=== PATIENT | male | born 1960 | race Caucasian/White ===

== ENCOUNTER 2020-10-25 14:26 | Emergency (ER) | payer OTHER, MEDICAID ==
[~2020-10-25] VITALS: Ht 162.6 cm; Wt 61.2 kg
[2020-10-25 14:26] VITALS: BP_SYST 136
[~2020-10-25 14:26] MED LIST: NORCO5 PO
--- NOTE | 2020-10-25 14:26 | NUR ---
BROUGHT BACK TO BED #2 AND TRIAGED. REPORT GIVEN TO SAM
--- NOTE | 2020-10-25 14:50 | NUR ---
pt. here has chronic back pain and ran out of regular Tylenol with codeine prescription. rates pain 01/09 which is normal when he does not take medication, Dr. Lara at bedside
--- NOTE | 2020-10-25 14:50 | NUR ---
MIKE Powers at bedside examining patient.
[2020-10-25] MEDS ORDERED: HYDROcodone/ACETAMIN 5-325 MG TAB (NORCO/ VICODIN) PO ONE (15:00)
--- NOTE | 2020-10-25 15:02 | NUR ---
norco given for pain 01/09
[2020-10-25 15:13] VITALS: BP_SYST 126
--- NOTE | 2020-10-25 15:14 | NUR ---
Patient given written and verbal discharge instructions and verbalizes understanding. Dr. Lara discussed with patient the results and treatment provided. Patient in stable condition. ID arm band removed. Patient educated on pain management and to follow up with PMD. Pain Scale 3. Opportunity for questions provided and answered. Medication side effect fact sheet provided.
== END 2020-10-25 15:14 | disposition home or self-care (01) ==
LOC: SED 14:26
DX: M54.5 Low back pain (principal)
CPT/HCPCS: 99283

== ENCOUNTER 2021-12-21 08:21 | Day surgery (SDC) | payer OTHER, MEDICAID ==
[2021-12-17 11:55] LABS: BILIRUBIN,URINE NEGATIVE (NEGATIVE); BLOOD, URINE NEGATIVE (NEGATIVE); CLARITY/URINE CLEAR (CLEAR); COLOR,URINE YELLOW (YELLOW); GLUCOSE,URINE NEGATIVE (NEGATIVE); KETONES,URINE NEGATIVE (NEGATIVE); LEUKOCYTE ESTERASE ,URINE NEGATIVE (NEGATIVE); NITRITE, URINE NEGATIVE (NEGATIVE); PROTEIN URINE NEGATIVE (NEGATIVE); UROBILINOGEN,URINE 0.2 (0.2-1.0)
[2021-12-17 11:58] LABS: BASOPHILS # (AUTO) 0.1 K/uL (0.0-0.2); BASOPHILS % (AUTO) 0.7 % (0.0-2.0); EOSINOPHILS # (AUTO) 0.5 K/uL (0.0-0.4); EOSINOPHILS % (AUTO) 4.7 % (0.0-4.0); HEMATOCRIT 32.8 % (36-54); LYMPHOCYTES # (AUTO) 1.8 K/uL (1.0-5.5); LYMPHOCYTES % (AUTO) 16.3 % (20.5-51.5); MEAN CORPUSCULAR HEMOGLOBIN 30 pg (27-31); MEAN CORPUSCULAR HGB CONC 34 % (32-36); MEAN CORPUSCULAR VOLUME 90 fL (79.0-98.0); MONOCYTES # (AUTO) 1.5 K/uL (0.0-1.0); MONOCYTES % (AUTO) 13.1 % (1.7-9.3); NEUTROPHILS # (AUTO) 7.3 K/uL (1.8-7.7); NEUTROPHILS % (AUTO) 65.2 % (40.0-70.0); PLATELET COUNT (AUTO) 249 K/uL (130-430); RED BLOOD CELL COUNT(AUTO) 3.66 MIL/uL (4.2-6.2); WHITE BLOOD COUNT (AUTO) 11.3 K/uL (4.8-10.8)
[2021-12-17 12:28] LABS: CALCIUM 8.7 mg/dL (8.4-11.0); CREATININE 1.35 mg/dL (0.55-1.30); POTASSIUM 4.1 mmol/L (3.5-5.1)
[~2021-12-21] VITALS: Ht 175.3 cm; Wt 68.0 kg
[2021-12-21] MEDS ORDERED: KETOROLAC TROMETHAMINE 30 MG VIAL ONE (10:34)
[2021-12-21] MEDS ORDERED: MIDAZOLAM HCL 2 MG/2 ML VIAL (VERSED) ONE (10:34)
[2021-12-21] MEDS ORDERED: fentaNYL CITRATE/PF 100 MCG/2 ML AMP ONE (10:34)
[2021-12-21] MEDS ORDERED: NS IRRIG SOLN 1000 ML IR ONE (10:34)
[2021-12-21] MEDS ORDERED: BUPIVACAINE /PF 0.5% 30 ML VIAL ONE (10:34)
[2021-12-21] MEDS ORDERED: ONDANSETRON HCL 4 MG/2 ML VIAL ONE (10:34)
[2021-12-21] MEDS ORDERED: LR 1,000 ML IV.SOLN IV ONE (10:34)
[2021-12-21] MEDS ORDERED: LABETALOL 100 MG/ 20ML VIAL IVP PRN (12:00)
[2021-12-21] MEDS ORDERED: LR 1,000 ML IV SCH (12:00)
[2021-12-21] MEDS ORDERED: ONDANSETRON HCL 4 MG/2 ML VIAL IVP PRN (12:00)
[2021-12-21] MEDS ORDERED: HYDROmorphone 1 MG/ML INJ. CARTRIDGE IVP PRN (12:00)
[2021-12-21] MEDS ORDERED: hydrALAZINE HCL 20 MG/ML VIAL IVP PRN (12:00)
[2021-12-21 13:55] VITALS: BP_SYST 125
== END 2021-12-21 13:40 | disposition home or self-care (01) ==
LOC: SDS 08:21 → SMU 08:22 → SDS 13:40
PROVIDERS: ATTEND Orthopaedic Surgery
DX: G56.03 Carpal tunnel syndrome, bilateral upper limbs (principal); I51.7 Cardiomegaly; Z79.01 Long term (current) use of anticoagulants; Z79.899 Other long term (current) drug therapy; Z20.822 Contact with and (suspected) exposure to COVID-19
CPT/HCPCS: 36415 ×2; 64721; 71046; 80048; 81003; 85025; 85610; 85730; 87426; 93005; J1885; J2405; J3010; J3465; J3490; J7120; U0003